=== PATIENT | female | born 1975 | race Caucasian/White ===

== ENCOUNTER → 2020-01-24 | Outpatient (CLI) | payer OTHER ==
[~2020-01-24] MED LIST: FEXO1TAB27 PO; LORA10TA68 PO; OMEP20TA63 PO
[2020-01-24 14:31] LABS: BASO % 0 % (0-3); EOS # 0.3 x10^3/uL (0.0-0.7); EOS % 3 % (0-3); HEMATOCRIT 39.5 % (36.0-47.0); HEMOGLOBIN 13.1 g/dL (12.0-15.5); LYMPH # 2.2 x10^3/uL (1.0-4.8); LYMPH % 24 % (24-48); MEAN CORPUSCULAR HEMOGLOBIN 28 pg (25-35); MEAN CORPUSCULAR HGB CONC 33 g/dL (31-37); MEAN CORPUSCULAR VOLUME 85 fL (79-100); MONO # 0.6 x10^3/uL (0.0-1.1); MONO % 6 % (0-9); NEUT # 5.9 x10^3/uL (1.8-7.7); NEUT % 66 % (31-73); PLATELET COUNT 257 x10^3/uL (140-400); RED BLOOD COUNT 4.67 x10^6/uL (3.50-5.40); RED CELL DISTRIBUTION WIDTH 14.4 % (11.5-14.5)
--- NOTE | 2020-01-24 15:04 | EKG ---
[facility] [address] [place] [address] Test Date: 2020-01-24 Test Time: 14:41:49 Pat Name: JILL ARAYA Department: Room: Gender: F Animal Trapper: ANKUSH : 1975 Requested By: EJ CORONA Order Number: [id number] Reading MD: Jim Lu Measurements Intervals [place] Rate: 63 P: 24 NM: 180 QRS: 48 QRSD: 110 T: 0 QT: 446 QTc: 460 Interpretive Statements SINUS RHYTHM Electronically Signed On 01-27-2020 10:42:52 CDT by Jim Lu
[2020-01-24 15:09] LABS: BILIRUBIN,URINE SMALL (NEG); CLARITY,URINE CLEAR; COLOR,URINE AMBER; NITRITE,URINE NEGATIVE (NEG); PROTEIN,URINE NEGATIVE (NEG-TRACE)
[2020-01-24 15:12] LABS: ALBUMIN 3.7 g/dL (3.4-5.0); ALBUMIN/GLOBULIN RATIO 0.9 (1.0-1.7); CALCIUM 8.9 mg/dL (8.5-10.1); CREATININE 0.8 mg/dL (0.6-1.0); GFR 78.7; POTASSIUM 3.6 mmol/L (3.5-5.1); TOTAL BILIRUBIN 0.7 mg/dL (0.2-1.0); TOTAL PROTEIN 7.7 g/dL (6.4-8.2)
--- NOTE | 2020-01-24 15:31 | RAD ---
AP and Lateral Views of the Chest 01/24/2020 2:08 PM Indication: Reason: PRE OP HYSTERECTOMY ON 01/29/20 / [facility]. Instructions: / History: Comparison: Chest radiograph December 10, 2012. Findings: There is no focal consolidation or infiltrate identified. The cardiomediastinal silhouette is within normal limits. There is no evidence of pneumothorax or pleural effusion. No acute osseous abnormalities are identified. Impression: No evidence of acute cardiopulmonary process. Electronically signed by: Bjorn Mejia MD (01/24/2020 3:28 PM) [id number]
[2020-01-24 15:33] LABS: BACTERIA,URINE FEW /HPF (0-FEW); RBC,URINE 0 /HPF (0-2); SQUAMOUS EPITHELIAL CELL,UR MOD /LPF
== END | disposition home or self-care (01) ==
LOC: SURGPAT 13:39
PROVIDERS: ATTEND Obstetrics & Gynecology
DX: Z01.818 Encounter for other preprocedural examination (principal); Z11.59 Encounter for screening for other viral diseases
CPT/HCPCS: 36415; 71046; 80053; 81001; 85025; 87086; 93005; U0003

== ENCOUNTER 2020-01-29 06:01 | Observation (INO) | payer OTHER ==
[2020-01-29] VITALS (8 sets, daily range): BP systolic 105–126; BP diastolic 60–73
[~2020-01-29] VITALS: Ht 170.7 cm; Wt 80.0 kg
[2020-01-29] MEDS ORDERED: fentaNYL PF VIAL 100 MCG/2 ML VIAL IV PRN (07:00)
[2020-01-29] MEDS ORDERED: IV RINGERS,LACTATED 1000ML 1,000 ML IV SCH (07:00)
[2020-01-29] MEDS ORDERED: ceFAZolin 2GM PREMIX 2 GM/50 ML BAG IV ONE (07:00)
[2020-01-29] MEDS ORDERED: PROCHLORPERAZINE 10 MG/2 ML VIAL. IV PRN (07:00)
[2020-01-29] MEDS ORDERED: ONDANSETRON PF 4 MG/2 ML VIAL. IV PRN ×2 (07:00→11:30)
[2020-01-29] MEDS ORDERED: DEXAMETHASONE SOD PHOS 4 MG/ML VIAL ONE (07:11)
[2020-01-29] MEDS ORDERED: ONDANSETRON PF 4 MG/2 ML VIAL. ONE (07:11)
[2020-01-29] MEDS ORDERED: LIDOCAINE 2% PF 5 ML VIAL. ONE (07:11)
[2020-01-29] MEDS ORDERED: ROCURONIUM 50 MG/5 ML VIAL. ONE (07:11)
[2020-01-29] MEDS ORDERED: SUCCINYLCHOLINE 200 MG/10 ML VIAL. ONE (07:11)
[2020-01-29] MEDS ORDERED: fentaNYL PF VIAL 100 MCG/2 ML VIAL ONE ×3 (07:11→11:19)
[2020-01-29] MEDS ORDERED: MIDAZOLAM HCL/PF 2 MG/2 ML VIAL. ONE (07:11)
[2020-01-29] MEDS ORDERED: PROPOFOL 10 MG/ML (20ML) VIAL. IV ONE (07:11)
[2020-01-29] MEDS ORDERED: BUPIVACAINE-EPI 0.25%-1:200000 MPF 30 ML VIAL. ONE ×3 (07:17→08:04)
[2020-01-29] MEDS ORDERED: ESTROGENS, CONJ VAGINAL CREAM 30GM TUBE. ONE (07:17)
[2020-01-29] MEDS ORDERED: INDIGOTINDISULFONATE SODIUM 40 MG/5 ML AMPUL. ONE (07:18)
[2020-01-29] MEDS ORDERED: 0.9 % SODIUM CHLORIDE 20 ML VIAL. IJ ONE ×4 (07:18→08:58)
[2020-01-29] MEDS ORDERED: GLYCOPYRROLATE 1 MG/5 ML VIAL. ONE (08:48)
[2020-01-29] MEDS ORDERED: KETOROLAC 30 MG/ML VIAL. ONE (08:48)
[2020-01-29] MEDS ORDERED: SEVOFLURANE > 120 MINUTES. IH ONE (08:49)
[2020-01-29] MEDS ORDERED: NEOSTIGMINE METHYLSULFATE 5 MG/5 ML SYRINGE. ONE (08:49)
[2020-01-29] MEDS ORDERED: SURGICEL HEMOSTAT 4X8 EACH. ONE (10:29)
[2020-01-29] MEDS ORDERED: CALCIUM CARBONATE 500 MG TAB.CHEW PO PRN (11:30)
[2020-01-29] MEDS ORDERED: MAG HYDROX/ALUMINUM HYD/SIMETH 30 ML ORAL.SUSP PO PRN (11:30)
[2020-01-29] MEDS ORDERED: MAGNESIUM HYDROXIDE 2,400 MG/30 ML ORAL.SUSP. PO PRN (11:30)
[2020-01-29] MEDS ORDERED: ZOLPIDEM 5 MG TABLET. PO PRN (11:30)
[2020-01-29] MEDS ORDERED: diphenhydrAMINE HCL 25 MG CAPSULE PO PRN (11:30)
[2020-01-29] MEDS ORDERED: MORPHINE SULFATE 2 MG/ML VIAL. IV PRN (11:30)
[2020-01-29] MEDS ORDERED: HYDROcodone/APAP 5/325MG 1 TAB TABLET PO PRN (11:30)
[2020-01-29] MEDS ORDERED: NALOXONE 0.4 MG/ML VIAL. IV PRN (11:30)
[2020-01-29] MEDS ORDERED: SIMETHICONE 80 MG TAB.CHEW PO PRN (11:30)
[2020-01-29] MEDS ORDERED: diphenhydrAMINE 50 MG/ML VIAL IV PRN (11:30)
[2020-01-29] MEDS ORDERED: 0.9 % SODIUM CHLORIDE 10 ML DISP.SYRIN. IV PRN (11:30)
[2020-01-29] MEDS ORDERED: LACTULOSE 20 GM/30 ML SOLUTION. PO PRN (11:30)
--- NOTE | 2020-01-29 11:35 | PDOC ---
BRIEF OPERATIVE NOTE Date: Jan 29, 2020 Pre-Op Diagnosis menorrhagia, complex endometrial hyperplasia, rectocele Post-Op Diagnosis same Procedure Performed LAVH/bilateral salpingectomy/posterior repair and perineoplasty Surgeon Dr. Annabella Mitchell Drill Foreman LAUREN Carias Anesthesiologist Dr. Morgan Anesthesia Type: General Blood Loss 150cc IV Fluid 1300cc Urine Output 200cc clear via hernandez Specimens Obtained cervix, uterus, bilateral tubes, vaginal mucosa Findings 2-3 degree rectocele, 1 cystocele, mildly enlarged uterus, part of right tube removed,normal bilateral ovaries Complications none Operative Note [id number] ANNABELLA MITCHELL MD Jan 29, 2020 11:35
[2020-01-29] MEDS: fentaNYL PF VIAL 100 MCG/2 ML VIAL IV PRN ×2 (11:40→11:50)
[2020-01-29 11:58] LABS: HEMATOCRIT 37.2 % (36.0-47.0); HEMOGLOBIN 12.3 g/dL (12.0-15.5); RED BLOOD COUNT 4.37 x10^6/uL (3.50-5.40); RED CELL DISTRIBUTION WIDTH 14.5 % (11.5-14.5); WHITE BLOOD COUNT 13.7 x10^3/uL (4.0-11.0)
[2020-01-29] MEDS ORDERED: MORPHINE SULFATE 2 MG/ML VIAL. ONE (12:06)
[2020-01-29] MEDS ORDERED: HYDROmorphone 2 MG/ML VIAL ONE (12:09)
[2020-01-29] MEDS: MORPHINE SULFATE 2 MG/ML VIAL. IV PRN ×2 (12:12→12:25)
[2020-01-29] MEDS ORDERED: PROCHLORPERAZINE 10 MG/2 ML VIAL. ONE (12:13)
[2020-01-29] MEDS: HYDROmorphone 2 MG/ML VIAL IV PRN ×2 (12:13→12:24)
--- NOTE | 2020-01-29 12:33 | OP ---
DATE OF SURGERY: 01/29/2020 PREOPERATIVE DIAGNOSES: Menorrhagia with complex endometrial hyperplasia on endometrial biopsy in the office and enlarged Symptomatic rectocele. POSTOPERATIVE DIAGNOSES: Menorrhagia with complex endometrial hyperplasia on endometrial biopsy in the office and enlarged Symptomatic rectocele. PROCEDURE: Laparoscopic-assisted vaginal hysterectomy, bilateral salpingectomy, posterior colporrhaphy and perineoplasty. SURGEON: Ej Mitchell MD OIL REFINER: Jaqueline Grimes. ANESTHESIOLOGIST: Dr. Morgan. ANESTHESIA: General. BLOOD LOSS: 150 mL. URINE OUTPUT: 200 mL, clear via Amin. IV FLUIDS: 1300 mL of crystalloid. SPECIMEN: Cervix, uterus, bilateral tubes and vaginal mucosa. FINDINGS: Mild small first degree cystocele, second to third-degree rectocele, mildly enlarged uterus, normal bilateral ovaries, normal left tube and a partial right tube that was in there. COMPLICATIONS: None. DESCRIPTION OF PROCEDURE: This patient was taken to the operating room where general anesthesia was placed. The patient was placed in the dorsal lithotomy position in Ashwin stirrups. The patient's abdomen and vagina were both prepped and draped in the normal sterile fashion. Upon my arrival, a Amin catheter had been inserted under sterile technique. Upon my arrival, a timeout was performed. Once everyone agreed on the patient, the site, the procedure, the procedure was initiated. A bivalve speculum was placed in the patient's vagina. A single-tooth tenaculum was used to grasp the anterior lip of the cervix. A 10 mL of 0.25% Marcaine with epinephrine was used to circumferentially inject around the cervix for both hemodissection and hemostatic purposes later. The [employer] uterine manipulator was placed, locked on the single tooth tenaculum and the bivalve speculum was then removed. Top gloves were discarded and changed. Attention was then turned to the abdomen where a small supraumbilical skin incision was made with the scalpel. A curved Juliana was used to dissect through the subcuticular layer to the fascia. The 5 mm Visiport was used directly into the abdominal cavity. Opening patient pressure was 3-4 mmHg. Carbon dioxide gas was used to then appropriately insufflate the abdominal cavity to maintain a pressure of 15 mmHg. The patient was placed in Trendelenburg position. 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 The 4-5 mL of air was placed in the cuff. Then, the camera was moved laterally to look at the umbilical port. Once it was assured to be in a good spot with no adhesions, that trocar cuff was insufflated as well. At this point, the right lower quadrant port was placed, again transilluminating the abdominal wall, finding an area clear of any vasculature, making a small incision and placing it in and insufflating that trocar cuff with air as well, 4-5 mL of air. At this point, uterus had no significant adhesions. The ovaries looked good. She wished to retain them as she is only 44. So, we started on the left, elevating the tube going under the tube above the ovary, doing the salpingectomy, crossing the left uterine ovarian pedicle and the left round ligament. Doing the same thing on the right. The distal end of the right tube was missing, but we did elevate with the remaining tube and go under it. Again, we went through the right round ligament and the right uteroovarian pedicle, so we left both ovaries per the patient's request. Once I got the round on the right, I was able to start the bladder flap and then I was able to elevate it with the [place] and used the monopolar hook to go across and create the bladder flap sharply. Once the bladder was down, I got the uterines on the right side and then staying inside that pedicle going down and hugging the cervix, going down lower. This was done exactly the same on the left side after meeting that bladder flap across, pushing the uterus cephalad and hugging the uterus going down through the cardinal and broad ligaments to the uterosacral on the left side of the uterus. Once this was done, the uterus was completely free and blanched. Attention was turned vaginally. All instruments were removed and attention was turned vaginally. The single tooth and Valtchev were removed. A weighted speculum was placed in the patient's vagina. Thyroid Ying clamps were placed on the anterior and posterior lips of the cervix respectively. A scalpel was used to make a circumferential incision in the cervix. An open Ray-Gray 4 x 4 was used to gently push up the anterior bladder peritoneum and the anterior cul-de-sac was digitally and bluntly entered and a retractor was placed in here. The 4 x 4 was removed and passed off to the scrub nurse. The cervix was elevated and the posterior cul-de-sac was sharply entered with curved Bledsoe scissors. A #0 Vicryl stitch was used to secure the posterior peritoneum to the vaginal cuff. It was tagged with a curved Juliana clamp and the needle was cut and passed off. The short weighted speculum was removed and replaced with the long weighted Tita speculum in the posterior cul-de-sac. Curved Matilda clamps x 2 were placed on the patient's left uterosacral ligament where they were doubly clamped with curved Heaneys, cut with Bledsoe scissors and suture ligated x 2 with 0 Vicryl. Second one was taken through the vaginal cuff, securing uterosacral ligament to the vaginal cuff, tagging it with a straight Juliana clamp and cutting and passing the needle off. This was done exactly the same on the patient's right side, double clamping the uterosacrals with curved Matilda's, cutting with Bledsoe scissors and suture ligating x 2 with #0 Vicryl. Again, second one was taken through the vaginal cuff securing uterosacral ligament to the vaginal cuff and tying it and tagging it with a straight Juliana clamp, and cutting and passing the needle off. The remaining pedicle on both sides was delineated with a curved mixture and the vaginal LigaSure was used to cauterize and cut the remaining pedicles on both sides. Cervix, uterus, bilateral tubes were delivered in toto and passed off for permanent pathology. A sponge stick was used to examine the pedicles. There was no active bleeding at this point, so long Allis was used to grasp the anterior bladder peritoneum. The long Tita speculum was removed and replaced with the short weighted vaginal speculum. A 2-0 Vicryl was taken through the anterior bladder peritoneum, left uterosacral ligament, posterior peritoneum and right uterosacral ligament, thus closing the peritoneum in a pursestring like fashion. Once this was done, the cystocele was not significant and it was very shorten anterior vagina, so we decided not to perform the anterior repair. So, the cuff was closed in an anterior to posterior running locked fashion and tied to the posterior cuff tag. Once this was done, Peans were placed at 4 and 7 o'clock at the opening of the introitus and 90 mL of a dilute solution of one part 0.25% Marcaine with epinephrine to three parts local injectable saline was injected in the perineal body and the posterior repair. A scalpel was used to take a prakash shaped wedge out of the introitus and Metzenbaum scissors were used to open up the posterior defect, placing Allises along the way until we were within less than a centimeter of the posterior vaginal cuff. Opening them up on both sides using the Metzenbaum scissors sharply and bluntly with the Ray-Gray and the Metzenbaum scissors, the defect was dissected from the posterior vaginal mucosa and it slid down very nicely in a great plane with minimal bleeding. At this point in a series of 6 or 7 interrupted 2-0 Vicryl sutures were placed, first placing them and tagging them making sure we were not buttonholed and it was a very large defect, and we were able to get very deep and reduce that defect very well. Then, going back and tying them and using the blunt end of a pickup to gently push down the defect and bringing the edges together over the fascia. Once it was reduced well, a few imbricating stitches were placed over it just to make sure there were no openings as this was a large defect. The excess posterior vaginal mucosa was trimmed with the Metzenbaum scissors on both sides and 2-0 Vicryl was used to close the posterior defect in a running locked fashion. Getting it down to the introitus, there was a tiny bit of bleeding I could see. When we put the retractor back in, it appeared to be coming from the left upper corner not on the cuff itself, but almost like a little tear from the retractor or something the handheld Nilda. So, I put an interrupted stitch in this with excellent results and it did stop bleeding. So I went down, did the posterior defect in a running locked fashion in the posterior vagina, brought to the introitus together, went under, brought the perineal body together and then subcutaneous in the perineal body, went back under and tied it off in the vagina, almost like an episiotomy repair. Once this was done, the perineal body was thickened and elongated again and it brought the introitus back together and closed off the opening, so it was not a gaping introitus. Examining it again, it was completely hemostatic. The cuff looked good, the posterior repair looked good. So, all instruments were removed and counted. Once the counts were correct. Gloves were discarded and changed and attention was turned back above for a second look. Upon reinsufflating the abdomen and placing her back in Trendelenburg, there was noted to be some clotting in the posterior cul-de-sac, so copious irrigation revealed some slight bleeding from the patient's left side on the upper part of the cuff almost like above the cuff and below the bladder in that area. Initially, I kind of cauterized just the edges and it slowed down some. So then I placed the Tisseel and all but one little area had stopped, so I put Surgicel and held pressure there, which seemed to work very, very well. After watching it and letting the gas out, watching it again for several minutes and putting pressure on that Surgicel, there was no more active bleeding. I did look at the right upper quadrant, I found the appendix and made sure the pericolic gutters were clear and I kept looking at it again. It was watched for several minutes, again taking the gas down a few times too, making sure that when the pressure released, it was not going to start bleeding. Once this was all assured, the right and left lower quadrant ports, the trocar cuffs were deflated and they were removed again looking each time in between at the cuff again. There was no more active bleeding, nothing welling up in the cul-de-sac and the posterior edge where it was running down, had no more active rundown during any of this. So, the trocar cuff was deflated on the umbilical port. Gas was released through this. All three port sites were closed with 4-0 nylon and injected with local at the end. The patient was awakened from anesthesia, extubated and brought to recovery room in stable condition. EJ MITCHELL MD DR: YANIRA/penny JOB#: [id number] / [id number]
[2020-01-29] MEDS: oxyCODONE/APAP 5/325 1 TAB TABLET PO PRN ×3 (14:30→23:46)
[2020-01-30 03:45] VITALS: BP 104/60
[2020-01-30] MEDS: oxyCODONE/APAP 5/325 1 TAB TABLET PO PRN ×2 (03:46→09:47)
[2020-01-30 05:06] LABS: CALCIUM 8.7 mg/dL (8.5-10.1); CREATININE 0.7 mg/dL (0.6-1.0); GFR 91.8; POTASSIUM 4.2 mmol/L (3.5-5.1)
--- NOTE | 2020-01-30 07:57 | PDOC ---
SURGICAL PROGRESS NOTE Subjective Doing well without complaints. Scant VB. Voiding well without problems. Tolerating regular diet; feels steady on feet. Vital Signs Vital Signs Date Time Temp Pulse Resp B/P (MAP) Pulse Ox O2 Delivery O2 Flow Rate FiO2 01/30/20 03:46 Room Air 01/30/20 03:45 97.9 63 18 104/60 (75) 97 97.9 01/29/20 16:55 2.0 I&O Intake and Output 01/30/20 06:59 Intake Total 3450 ml Output Total 1400 ml Balance 2050 ml Intake Oral 600 ml IV Total 2050 ml Other 800 ml Output Urine Total 1200 ml Estimated Blood Loss 200 ml # Voids 4 PATIENT HAS A MITCHELL: No General: Alert, Oriented X3, Cooperative, No acute distress HEENT: Atraumatic Heart: Regular rate Abdomen: Soft, No tenderness, No masses, Other (all port site bandages c/d/i) Skin: No rashes, No breakdown Neuro: Normal speech Psych/Mental Status: Mental status NL, Mood NL Labs Laboratory Tests Test 01/29/20 06:33 01/29/20 11:45 01/30/20 03:30 Bedside Urine HCG, Qualitative Hcg negative (Negative) White Blood Count 13.7 x10^3/uL (4.0-11.0) Red Blood Count 4.37 x10^6/uL (3.50-5.40) Hemoglobin 12.3 g/dL (12.0-15.5) Hematocrit 37.2 % (36.0-47.0) 29.3 % (36.0-47.0) Mean Corpuscular Volume 85 fL (79-100) Mean Corpuscular Hemoglobin 28 pg (25-35) Mean Corpuscular Hemoglobin Concent 33 g/dL (31-37) Red Cell Distribution Width 14.5 % (11.5-14.5) Platelet Count 321 x10^3/uL (140-400) Sodium Level 141 mmol/L (136-145) Potassium Level 4.2 mmol/L (3.5-5.1) Chloride Level 106 mmol/L (98-107) Carbon Dioxide Level 32 mmol/L (21-32) Anion Gap 3 (6-14) Blood Urea Nitrogen 9 mg/dL (7-20) Creatinine 0.7 mg/dL (0.6-1.0) Estimated GFR (Cockcroft-Gault) 91.8 Glucose Level 89 mg/dL (70-99) Calcium Level 8.7 mg/dL (8.5-10.1) Laboratory Tests Test 01/29/20 11:45 01/30/20 03:30 White Blood Count 13.7 x10^3/uL (4.0-11.0) Red Blood Count 4.37 x10^6/uL (3.50-5.40) Hemoglobin 12.3 g/dL (12.0-15.5) Hematocrit 37.2 % (36.0-47.0) 29.3 % (36.0-47.0) Mean Corpuscular Volume 85 fL (79-100) Mean Corpuscular Hemoglobin 28 pg (25-35) Mean Corpuscular Hemoglobin Concent 33 g/dL (31-37) Red Cell Distribution Width 14.5 % (11.5-14.5) Platelet Count 321 x10^3/uL (140-400) Sodium Level 141 mmol/L (136-145) Potassium Level 4.2 mmol/L (3.5-5.1) Chloride Level 106 mmol/L (98-107) Carbon Dioxide Level 32 mmol/L (21-32) Anion Gap 3 (6-14) Blood Urea Nitrogen 9 mg/dL (7-20) Creatinine 0.7 mg/dL (0.6-1.0) Estimated GFR (Cockcroft-Gault) 91.8 Glucose Level 89 mg/dL (70-99) Calcium Level 8.7 mg/dL (8.5-10.1) I have reviewed the following labs, vitals, nursing Cardiovascular: HTN Pulmonary: No pertinent hx GI: No pertinent hx Heme/Onc: No pertinent hx Psych: No pertinent hx Rheumatologic: No pertinent hx Infectious disease: No pertinent hx Endocrine: No pertinent hx Dermatology: No pertinent hx Problem List complex hyperplasia rectocele Assessment/Plan POD#1 s/p LAVH/bilateral salpingectomy/posterior repair and perineoplasty Routine po care d/c to home NPV x 6 weeks light/limited activity x 2 weeks keep scheduled follow up with me as scheduled NO driving on narcotics hydrocodone at home for pain meds call or return sooner for any other questions or concerns not limited to but including pain unrelieved with pain meds, increased or unexplained vag bleeding, T>100.4 Justicifation of Admission Dx: Justifications for Admission: Justification of Admission Dx: Yes EJ CORONA MD Jan 30, 2020 07:57
--- NOTE | 2020-01-30 08:00 | PDOC3 ---
Discharge Summary Visit Information Date of Admission: Jan 29, 2020 Date of Discharge: Jan 30, 2020 Final Diagnosis complex endometrial hyperplasia with menorrhagia and rectocele Brief Hospital Course Allergies Allergies Coded Allergies Type Severity Reaction Last Updated Verified lisinopril Allergy Intermediate Anaphylaxis 01/24/20 Yes Vital Signs Vital Signs Date Time Temp Pulse Resp B/P (MAP) Pulse Ox O2 Delivery O2 Flow Rate FiO2 01/30/20 03:46 Room Air 01/30/20 03:45 97.9 63 18 104/60 (75) 97 97.9 01/29/20 16:55 2.0 Lab Results Laboratory Tests Test 01/29/20 06:33 01/29/20 11:45 01/30/20 03:30 Bedside Urine HCG, Qualitative Hcg negative (Negative) White Blood Count 13.7 x10^3/uL (4.0-11.0) Red Blood Count 4.37 x10^6/uL (3.50-5.40) Hemoglobin 12.3 g/dL (12.0-15.5) Hematocrit 37.2 % (36.0-47.0) 29.3 % (36.0-47.0) Mean Corpuscular Volume 85 fL (79-100) Mean Corpuscular Hemoglobin 28 pg (25-35) Mean Corpuscular Hemoglobin Concent 33 g/dL (31-37) Red Cell Distribution Width 14.5 % (11.5-14.5) Platelet Count 321 x10^3/uL (140-400) Sodium Level 141 mmol/L (136-145) Potassium Level 4.2 mmol/L (3.5-5.1) Chloride Level 106 mmol/L (98-107) Carbon Dioxide Level 32 mmol/L (21-32) Anion Gap 3 (6-14) Blood Urea Nitrogen 9 mg/dL (7-20) Creatinine 0.7 mg/dL (0.6-1.0) Estimated GFR (Cockcroft-Gault) 91.8 Glucose Level 89 mg/dL (70-99) Calcium Level 8.7 mg/dL (8.5-10.1) Laboratory Tests Test 01/29/20 11:45 01/30/20 03:30 White Blood Count 13.7 x10^3/uL (4.0-11.0) Red Blood Count 4.37 x10^6/uL (3.50-5.40) Hemoglobin 12.3 g/dL (12.0-15.5) Hematocrit 37.2 % (36.0-47.0) 29.3 % (36.0-47.0) Mean Corpuscular Volume 85 fL (79-100) Mean Corpuscular Hemoglobin 28 pg (25-35) Mean Corpuscular Hemoglobin Concent 33 g/dL (31-37) Red Cell Distribution Width 14.5 % (11.5-14.5) Platelet Count 321 x10^3/uL (140-400) Sodium Level 141 mmol/L (136-145) Potassium Level 4.2 mmol/L (3.5-5.1) Chloride Level 106 mmol/L (98-107) Carbon Dioxide Level 32 mmol/L (21-32) Anion Gap 3 (6-14) Blood Urea Nitrogen 9 mg/dL (7-20) Creatinine 0.7 mg/dL (0.6-1.0) Estimated GFR (Cockcroft-Gault) 91.8 Glucose Level 89 mg/dL (70-99) Calcium Level 8.7 mg/dL (8.5-10.1) Brief Hospital Course Ms. Blue is a 44 old female who presented with menorrhagia. EMB in office revealed complex endometrial hyperplasia. Pt elected on definitive therapy with hysterectomy and to have her rectocele repaired at the same time. She underwent LAVH/bilateral salpingectomy and rectocele repair yesterday without complications. She has had an unremarkable postoperative course. AFVSS, tolerating regular diet, voiding without catheter and desiring to go home. Ambulating well also Assessment Assessment POD#1 s/p LAVH/bilateral salpingectomy/posterior repair and perineoplasty Routine po care d/c to home NPV x 6 weeks light/limited activity x 2 weeks keep scheduled follow up with me as scheduled NO driving on narcotics hydrocodone at home for pain meds call or return sooner for any other questions or concerns not limited to but including pain unrelieved with pain meds, increased or unexplained vag bleeding, T>100.4 Discharge Information Condition at Discharge: Stable Follow Up: Weeks Disposition/Orders: D/C to Home Scheduled Fexofenadine/Pseudoephedrine (Pamela-D 12 Hour Tablet) 1 Each Tab.er.12h, 1 TAB PO DAILY for seasonal allergies for 10 Days, #10 Ref 0 (Reported) Entered as Reported by: Dana Curran on 01/24/201416 Loratadine (Claritin) 10 Mg Tablet, 1 TAB PO DAILY for allergy symptoms for 30 Days, #30 Ref 0 (Reported) Entered as Reported by: Dana Curran on 01/24/20 1417 Omeprazole Magnesium (Prilosec Otc) 20 Mg Tablet.dr, 1 TAB PO DAILY for gerd for 30 Days, #30 Ref 0 (Reported) Entered as Reported by: Dana Curran on 01/24/207 Last Taken: Unknown Dose on 01/28/20 0800 Last Action: Last Taken Edited on 01/29/20 0648 by DARINEL LIZAMA Patient Instructions Patient Instructions POD#1 s/p LAVH/bilateral salpingectomy/posterior repair and perineoplasty Routine po care d/c to home NPV x 6 weeks light/limited activity x 2 weeks keep scheduled follow up with me as scheduled NO driving on narcotics hydrocodone at home for pain meds call or return sooner for any other questions or concerns not limited to but including pain unrelieved with pain meds, increased or unexplained vag bleeding, T>100.4 Justicifation of Admission Dx: Justifications for Admission: Justification of Admission Dx: Yes EJ CORONA MD Jan 30, 2020 08:00
[2020-01-30 12:57] VITALS: BP 101/63
== END 2020-01-30 13:45 | disposition home or self-care (01) ==
LOC: SURG 06:01 → 3 NORTH 11:16
PROVIDERS: ADMIT Obstetrics & Gynecology; ATTEND Obstetrics & Gynecology
DX: N92.0 Excessive and frequent menstruation with regular cycle (principal); N16 Renal tubulo-interstitial disorders in diseases classified elsewhere; N81.6 Rectocele; N81.10 Cystocele, unspecified; Z98.84 Bariatric surgery status
CPT/HCPCS: 36415; 57260; 58552; 80048; 81025; 85014; 85027; 86850; 86900; 86901; A7015; G0378; G0379; J0330; J0690; J1100; J1170; J1200; J2250; J2270; J2405; J2704; J2710; J3010; J3490; J7030; J7120; 96374; J1885